=== PATIENT | male | born 1990 | race Caucasian/White ===

== ENCOUNTER 2016-05-23 23:19 | Emergency (ER) | payer OTHER ==
[~2016-05-23] VITALS: Ht 167.6 cm; Wt 66.4 kg
[~2016-05-23 23:19] MED LIST: IBUP200T48 PO; OMEP20TA24 PO
[2016-05-23 23:22] VITALS: BP 125/85; PULSE 64; RESP 16; O2SAT 100
--- NOTE | 2016-05-23 23:36 | ED.REPORT ---
HPI-Abd Pain M Under 40 Date of Service May 23, 2016 ED Provider: Jorge Lopez MD Patient is a 26 year old male with gastric ulcers and GERD who presents to the ED with severe epigastric abdominal pain that awoke him from sleep tonight, with increased pain for the past 2 weeks. He states that the pain awoke him from sleep and got up to eat something. Food did not improve his pain and he then began to vomit. He reports blood streaked emesis and radiation of his pain to his back. Typically antacids improve his pain, however tonight his symptoms persisted. He is on 80mg Omeprazole per day. Last time he was seen in the ED he received a GI cocktail, which improved his symptoms. Patient contacted his PCP this week to schedule an appointment, but is unable to get an appointment for several weeks. He denies previous abdominal surgeries. Patient previous smoked cigarettes and chewed tobacco, but has quit both of these habits. Nursing Notes Stated Complaint: ABDOMINAL PAIN Chief Complaint: Male Abdominal Pain Nursing Notes Reviewed: Yes Allergies: Coded Allergies: No Known Allergies (Verified Allergy, Unknown, 05/23/16) Scheduled Ibuprofen (Ibuprofen) 200 Mg Tablet 200 MG PO QID Omeprazole Magnesium (Prilosec Otc) 20 Mg Tablet.dr 20 MG PO DAILY General Time Seen by MD: 23:35 Chief Complaint Abdominal pain Hx Obtained From: Patient Arrived By: Walk-in Sudden in Onset?: No Onset Occurred: Just prior to arrival (ongoing for 2 weeks intermittently, worse tonight) Symptom Duration: Since onset Progression since Onset: Gradually worsening Location: : Epigastric Quality: Painful Severity: Current: Moderate Severity: Maximum: Severe Associated with: Reports: Hematemesis, Nausea, Vomiting Context Related History: Reports: GERD, Peptic ulcer disease Recent Healthcare: No recent doctor visit, No recent hospitalization Similar Sx Previous: No Past Medical History Past Medical History History of GERD gastric ulcers Question hx of skin disorders Past Surgical History Right knee anterior cruciate ligament reconstruction with hamstring autograft and medial meniscus repair Smoking History Current Every Day Smoker Social History Alcohol Use: Denies alcohol use Drug Use: Denies drug use Other Social History: Good social support, , Local resident Occupation works at [employer] in [place], leaves at 3 am Ambulatory Status Independent Review of Systems GI: Reports: Abdominal pain, Hematemesis, Nausea, Vomiting Musculoskeletal: Reports: Back pain, Denies: Extremity pain Complete sys rev & neg: except as marked. Physical Exam Initial Vital Signs Vital Signs (First) Date Time Temp Pulse Resp B/P Pulse Ox O2 Delivery O2 Flow Rate FiO2 05/23/16 23:22 36 64 16 125/85 100 Room Air Initial VS: Reviewed, Vital signs normal Head / Eyes: Atraumatic, Normocephalic, PERRL ENT: Mucous membranes moist, Conjunctiva normal, No scleral icterus Neck: Supple, Full range of motion Extremities: Vascular intact, Neuro intact Skin: Warm, Dry, No cyanosis Neurologic: Alert, Oriented, Nonfocal Psychiatric: Mood/affect normal, Behavior normal, Normal thought content General/Constitutional: Awake, Alert, No acute distress Respiratory / Chest: Breath sounds NL, Breath sounds = bilat, No respiratory distress, No rales, No rhonchi, No wheezing Cardiovascular: Heart rate NL, Regular rhythm, Heart sounds NL, No murmurs Abdomen: Soft, No guarding, No rebound Tenderness/Guarding/Rebound: Positive: Tender epigastric Back: Painless range of motion Interpretation & Diagnostics Lab Results Interpretation Result Diagram: 05/23/16 2345 05/23/16 2345 Test 05/23/16 23:45 White Blood Count 5.5th/mm3 (3.8-10.1) Red Blood Count 5.13mil/mm3 (4.40-5.80) Hemoglobin 15.2g/dL (13.8-17.2) Hematocrit 44.1% (41.0-50.0) Mean Corpuscular Volume 86.0fL (81-100) Mean Corpuscular Hemoglobin 29.6pg (27.0-35.0) Mean Corpuscular Hemoglobin Concent 34.5% (32.0-37.0) Red Cell Distribution Width 12.5% (12.3-15.4) Platelet Count 251bil/L (150-400) Neutrophils (%) (Auto) 52.0% (40-74) Lymphocytes (%) (Auto) 33.0% (14-46) Monocytes (%) (Auto) 10.8% (4-12) Eosinophils (%) (Auto) 3.3% (0-5) Basophils (%) (Auto) 0.7% (0-3) Sodium Level 139mEq/L (134-144) Potassium Level 4.0mEq/L (3.5-5.2) Chloride Level 99mEq/L (97-108) Carbon Dioxide Level 27mmol/L (18-29) Blood Urea Nitrogen 15mg/dL (6-20) Creatinine 0.70mg/dL (0.76-1.27) Estimat Glomerular Filtration Rate 145mL/min (>59) Glucose Level 132mg/dL (60-99) Calcium Level 9.1mg/dL (8.5-10.1) Magnesium Level 2.1mg/dL (1.6-2.6) Total Bilirubin 0.2mg/dL (0.0-1.2) Aspartate Amino Transf (AST/SGOT) 19U/L (0-50) Alanine Aminotransferase (ALT/SGPT) 23U/L (0-44) Alkaline Phosphatase 55U/L (25-150) Total Protein 7.3g/dL (6.4-8.4) Albumin 4.7g/dL (3.4-5.0) Lipase 24U/L (13-60) Lab values outside NL range: no clinical significance. Re-Eval/Medical Decision Med Decision/Clinical Course 26-year-old male with a history of ulcer presents with epigastric pain and one episode of vomiting a small amount of blood. The pain was relieved by Protonix and a GI cocktail. His H&H are normal. Maximize antacid treatment with omeprazole and Zantac. H. pylori testing is pending. Follow up with his normal doctor for endoscopy referral if pain persists. Source of Hx: Old records Re-Evaluation/Progress : Time of Eval: 00:51 Patient Status: Condition improved Re-Evaluation/Progress Note: Patient's pain is improved. Discussed his antacid medications. H. Pylori is pending. Patient understands and agrees with the plan to be discharged home. Discharge instructions and follow-up discussed. All questions were addressed. Return to the ED warnings given. Counseled Regarding: Diagnosis, Lab results, Need for follow-up, When/why to return to ED Patient Discharge & Departure Primary Impression: Epigastric pain Disposition: Home Discharge Condition All VS Reviewed: Yes Condition: Stable Patient Instructions: Gastroesophageal Reflux Disease (ED) Additional Instructions: Recommend that you maximize the antacid therapy: Omeprazole 40 mg twice daily and ranitidine 150 mg twice daily. H pylori testing is pending, talk to your regular doctor about the results. Follow-up with your regular doctor for a GI referral for endoscopy if he have persistent symptoms. Scribe Attestation Portions of this note were transcribed by Tayler Vega. I, Dr. Lopez personally performed the history, physical exam and medical decision-making; I reviewed and confirmed the accuracy of the information in the transcribed note. Signed by: Keara Beard, 05/24/2016 0057 Jorge Lopez MD May 23, 2016 23:36 Tayler Vega May 23, 2016 23:45
[2016-05-23] MEDS ORDERED: 0.9% Sodium Chloride 1,000 ML IV ONE (23:45)
[2016-05-23] MEDS ORDERED: Ondansetron 2 mg/mL 2 mL Inj IVPUSH PRN (23:45)
[2016-05-23] MEDS ORDERED: Pantoprazole 4 mg/mL 10 mL Inj IVPUSH ONE (23:45)
[2016-05-24 00:06] LABS: BASOPHILS % (AUTO) 0.7 % (0-3); EOSINOPHILS % (AUTO) 3.3 % (0-5); MONOCYTES % (AUTO) 10.8 % (4-12); Mean Corpuscular Hemoglobin 29.6 pg (27.0-35.0); Platelet Count 251 bil/L (150-400)
[2016-05-24 00:37] LABS: Magnesium 2.1 mg/dL (1.6-2.6)
[2016-05-24 01:11] VITALS: BP 132/82; PULSE 68; RESP 18; O2SAT 100
== END 2016-05-24 01:12 | disposition home or self-care (01) ==
LOC: SED 23:19
DX: R10.13 Epigastric pain (principal); K21.9 Gastro-esophageal reflux disease without esophagitis; F17.200 Nicotine dependence, unspecified, uncomplicated
CPT/HCPCS: 36415; 80053; 83690; 83735; 85025; 86677; 96361; 96374; 96375; 99285; J2405; J7030